=== PATIENT | female | born 1980 | race African-American/Black ===

== ENCOUNTER 2024-07-26 13:02 | Emergency (ER) | payer OTHER, SELFPAY ==
--- OUTSIDE RECORDS SUMMARY | 2024-07-26 13:11 | XMS_ITS | Clinical Summary ---
Author Organization [facility] Address [address] [place] [address] Care Team Providers Care Integrated Marketing Specialist Name Role Phone No, Physician Primary Care Provider [phone] Allergies No known active allergies Medications ibuprofen (ADVIL,MOTRIN) 600 mg tabletIndicati ons:Pain Take 1 tablet (600 mg total) by mouth every 8 (eight) hours as needed for pain. Take with food. 30 tablet 05/26/19 19 Active medroxyPROGEST ERone 150 mg/mL injection INJECT 1 ML INTRAMUSCULARLY DIRECTED EVERY 3 MONTHS FOR 84 DAYS 05/30/19 21 Active albuterol HFA (PROVENTIL HFA,VENTOLIN HFA,PROAIR HFA) 90 mcg/actuation inhaler Inhale 2 puffs every 4 (four) hours as needed for wheezing 8.5 g 09/05/19 22 Active fluconazole (DIFLUCAN) 150 mg tablet Take 1 tablet (150 mg total) by mouth as directed Take one tab now. Repeat in 7 days if symptoms persist. 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 Gender Identity Not on file Sexual Orientation Not on file Obstetrics History Para Term AB IAB SAB Ectopic Multiple Livin g Live Births 4 3 3 Date Outcome GA Total Labor Labor/2nd/3rd Weight Sex Type Anes PTL Michelle A1 A5 Name Clin Term Term Term Last Filed Vital Signs Vital Sign Reading Time Taken Comments Blood Pressure 113/80 02/17/2022 2:15 AM SPRAY WORKER Pulse 83 02/17/2022 2:15 AM SPRAY WORKER Temperature 37.3 C (99.2 F) 02/16/2022 3:00 PM SPRAY WORKER Respiratory Rate 18 02/16/2022 3:00 PM SPRAY WORKER Oxygen Saturation 100% 02/17/2022 2:15 AM SPRAY WORKER Inhaled Oxygen Concentration - - Weight 67.6 kg (149 lb) 02/16/2022 3:00 PM SPRAY WORKER Height 165.1 cm (5' 5 ) 02/16/2022 3:00 PM SPRAY WORKER Body Mass Index 24.79 02/16/2022 3:00 PM SPRAY WORKER Plan of Treatment Health Maintenance Due Date Last Done Comments Cervical Cancer Screening 1980 Depression Screening 1980 Hepatitis C Screening 1980 Regular Well Visit/Exam 18-64 1998 Pneumococcal vaccine <65 (2 of 2 - PPSV23) 12/24/2002 10/29/2002 HPV Vaccines (2 - 3-dose SCDM series) 12/20/2016 Breast Cancer Screening-Mammogram 07/14/2022 022 DTaP/Tdap/Td Vaccine (4 - Td or Tdap) 01/23/2024 01/22/2014, 11/27/2006, 10/29/2002 Influenza Vaccine (Season Ended) 2024 06/23/19 16, 02/10/2012 Hepatitis B Screening Completed 10/29/2002 Varicella Vaccines Completed 01/28/2010, 11/27/2006 Procedures Procedure Name Priority Date/Time Associated Diagnosis Comments SCREENING MAMMOGRAM BILATERAL W YO Schedule Routine, Read Routine (OP Routine) 07/14/2021 4:13 PM CDT Encounter for other screening for malignant neoplasm of breast from Last 3 Months or Most Recently Relevant to Health Maintenance Results * Screening Mammogram Bilateral W Yo (07/14/2021 4:13 PM CDT) Anatomical Region Laterality Modality Breast Bilateral Mammography 07/14/2021 4:38 PM CDT Impressions 07/14/2021 4:38 PM CDT There is no mammographic evidence of malignancy. A 1 year screening mammogram is recommended. BI-RADS: 1 - Negative. The patient has been or will be contacted. The patient will be entered into a reminder system with a target due date of 1 year for her next mammogram. Electronically signed by: Luis Steele M.D. Narrative 07/14/2021 4:38 PM CDT EXAMINATION: SCREENING MAMMOGRAM BILATERAL W YO ORDERING HEALTHCARE PROVIDER: KIMMIE YOUNG HISTORY: Routine screening mammography. COMPARISON: No prior mammograms available for comparison TECHNIQUE: CC and MLO views of the bilateral breasts were obtained with digital technique using breast tomosynthesis with C view. Computer aided detection was utilized. FINDINGS: DENSITY: The tissue of the bilateral breasts is heterogeneously dense, which may obscure small masses. BREASTS: There are no suspicious masses, suspicious calcifications, or other suspicious findings in either breast. There has been no suspicious interval change. Kimmie Young MD IMG MAMMO PROCEDURES Final Resul t from Last 3 Months or Most Recently Relevant to Health Maintenance Insurance [facility] Care Teams Integrated Marketing Specialist Relationship Specialty Start Date End Date No, Physician PCP - General 10/24/16
--- OUTSIDE RECORDS SUMMARY | 2024-07-26 13:11 | XMS_ITS | Encounter Summary ---
Author Organization [facility] Healthcare Address [facility] [place] [address] Care Team Providers Care Prenatal Genetic Counselor Name Role Phone No, Physician Primary Care Provider [phone] Encounter Details Date Type Department Care Team (Late st Contact Info) Description 02/03/2020 Telephone [facility] [address] [place] [id number] Ghazala Torres, RT Social History Tobacco Use Types Packs/Day Years Used Date Smoking Tobacco: Every Day Cigarettes Alcohol Use Standard Drinks/Week Comments Yes 0 (1 standard drink = 0.6 oz pur e alcohol) once a month Comments No Sex and Gender Information Value Date Recorded Sex Assigned at Not on file 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
--- OUTSIDE RECORDS SUMMARY | 2024-07-26 13:11 | XMS_ITS | Referral Summary ---
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 Gender Identity Not on file Sexual Orientation Not on file Last Filed Vital Signs Vital Sign Reading Time Taken Comments Blood Pressure 113/80 02/17/2022 2:15 AM CUTTING TABLE OPERATOR Pulse 83 02/17/2022 2:15 AM CUTTING TABLE OPERATOR Temperature 37.3 C (99.2 F) 02/16/2022 3:00 PM CUTTING TABLE OPERATOR Respiratory Rate 18 02/16/2022 3:00 PM CUTTING TABLE OPERATOR Oxygen Saturation 100% 02/17/2022 2:15 AM CUTTING TABLE OPERATOR Inhaled Oxygen Concentration - - Weight 67.6 kg (149 lb) 02/16/2022 3:00 PM CUTTING TABLE OPERATOR Height 165.1 cm (5' 5 ) 02/16/2022 3:00 PM CUTTING TABLE OPERATOR Body Mass Index 24.79 02/16/2022 3:00 PM CUTTING TABLE OPERATOR Plan of Treatment Not on file Procedures Procedure Name Priority Date/Time Associated Diagnosis [...] There has been no suspicious interval change. us Kimmie Young MD IMG MAMMO PROCEDURES Final Resul t from Last 3 Months or Most Recently Relevant to Health Maintenance Insurance [facility] [employer] [place] [address] [employer] [place] [address] Care Teams Reception Specialist Relationship Specialty Start Date End Date No, Physician PCP - General 10/24/16
--- OUTSIDE RECORDS SUMMARY | 2024-07-26 13:11 | XMS_ITS | Data Portability ---
[facility] Organization [facility] Address [address] [place] [address] Care Team Providers Care Editing Intern Name Role Phone KATY BURKS Plan Checker Assessment No assessment recorded. Plan of Treatment Reminders Order Date Submit Date Provider Last Modified By Organization Details Last Modified Time Details Appointments None recorded. Lab vaginal pathogens panel, JYOTSNA+probe , vaginal fluid 2023 024 [facility], [address] [place] [address], [facility], [place], [address], 4 07:15:06 cytology report, thin prep, smear or scraping, cervical or vaginal 2023 024 [facility], [address] [place] [address], [address], [place], [address], 4 15:10:25 bacterial vaginosis + vaginitis panel, vaginal 2023 024 [facility], [address] [facility], [facility], [place], [address], 4 15:17:15 lipid panel, serum 2023 024 [facility], [address] [place] [address], [facility], [place], [address], 4 15:17:16 HbA1c (hemoglob in A1c), blood 2023 024 [facility], [address] [place] [address], [facility], [place], [address], 4 15:17:17 cytology report, thin prep, smear or scraping, cervical or vaginal 2023 024 [facility], [address] [facility], [address], [place], [address], 4 15:21:14 Referral None recorded. Procedures insertion , intrauter ine device (PROC) 2021 022 [email or web address] Not available 12:23:02 Surgeries None recorded. Imaging MAMMO, screening , digital, bilateral [email or web address] [place] [address], 1 [facility], [place], [address], 4 15:29:18 Medication Orders NuvaRing 0.12 mg-0.015 mg/24 hr vaginal 2023 024 [facility], [address] [place], [address], 4 15:07:47 Lo Loestrin Fe 1 mg-10 mcg (24)/10 mcg (2) tablet 2021 022 [facility], [address] [place], [address], 4 11:13:55 Slynd 4 mg (28) tablet 2021 022 [facility], [address] [place], [address], 4 11:13:53 Mirena 21 mcg/24 hr (up to 8 years) 52 mg intrauter ine device 2021 022 [email or web address] Not available 12:15:18 Patient TargetsNo targets recorded. Patient Instructions Encounter Date Encounter Id Patient Instructions Last Modified By Organization Details Last Modified Time 03/02/2022 [id number] On the date of this encounter, I was immediately available to assist the resident/fellow in the care of the patient, and have reviewed and agree with the resident s findings and plan of care. [email or web address] Not available 03/07/2022 00:35:59 Reason for Referral None Reported. Results Created Date Observation Date Name Description Value Unit Range Abnormal Flag Note LastModifiedBy Organization Detail LastModifiedTime 04/27/19 24 04/30/2023 NUSWA B BV JYOTSNA+C AND6+ CT/GC /T... atopobium vaginae High - 2 score abnormal Not Available [facility] ([facility]) [address], [place], [address], 05/02/2023 15:17:15 04/27/19 24 04/30/2023 NUSWA B BV JYOTSNA+C AND6+ CT/GC /T... bvab 2 High - 2 score abnormal Not Available [facility] ([facility]) [address], [place], [address], 05/02/2023 15:17:15 04/27/19 24 04/30/2023 NUSWA B BV JYOTSNA+C AND6+ CT/GC /T... megasphaera 1 Low - 0 score Calcu late total score by andria villela the 3 indiv idual bacte rial vagin osis (BV) marke r score s toget her. Total score is inter prete d as follo ws: Total score 0-1: Indic ates the absen ce of BV. Total score 2: Indet ermin ate for BV. Addit ional clini ginna data shoul d be evalu ated to estab carolyn a diagn osis. Total score 3-6: Indic ates the prese nce of BV. This test was devel oped and its perfo rmanc e angélica cteri stics deter mined by [facility]. It has not been clear ed or appro murtaza by the Food and Drug Admin istra tion. Not Available [facility] ([facility]) [address], [place], [address], 05/02/2023 15:17:15 04/27/19 24 04/30/2023 NUSWA B BV JYOTSNA+C AND6+ CT/GC /T... carolina albicans, JYOTSNA Negati ve negati ve Not Available [facility] ([facility]) [address] [place], [address], 05/02/2023 15:17:15 04/27/19 24 04/30/2023 NUSWA B BV JYOTSNA+C AND6+ CT/GC /T... carolina glabrata, JYOTSNA Negati ve negati ve Not Available [facility] ([facility]) [address] [place], [address], 05/02/2023 15:17:15 04/27/19 24 04/30/2023 NUSWA B BV JYOTSNA+C AND6+ CT/GC /T... hsv 1 JYOTSNA Negati ve negati ve Not Available [facility] ([facility]) [address], [place], [address], 05/02/2023 15:17:15 04/27/19 24 04/30/2023 NUSWA B BV JYOTSNA+C AND6+ CT/GC /T... hsv 2 JYOTSNA Negati ve negati ve Not Available [facility] ([facility]) [address] [place], [address], 05/02/2023 15:17:15 04/27/19 24 05/01/2023 NUSWA B BV JYOTSNA+C AND6+ CT/GC /T... C parapsilosis /tropicalis Negati ve negati ve This assay does not diffe renti ate C. tropi calis and C. parap marco antonio is. Not Available [facility] ([facility]) [address] [place], [address], 05/02/2023 15:17:15 04/27/19 24 05/01/2023 NUSWA B BV JYOTSNA+C AND6+ CT/GC /T... carolina lusitaniae, JYOTSNA Negati ve negati ve Not Available [facility] ([facility]) [address] [place], [address], 05/02/2023 15:17:15 04/27/19 24 05/01/2023 NUSWA B BV JYOTSNA+C AND6+ CT/GC /T... carolina krusei, JYOTSNA Negati ve negati ve Not Available [facility] ([facility]) [address] [place], [address], 05/02/2023 15:17:15 04/27/19 24 05/02/2023 NUA B BV JYOTSNA+C AND6+ CT/GC /T... trich vag by JYOTSNA Positi ve negati ve abnormal Not Available [facility] ([facility]) [address] [place], [address], 05/02/2023 15:17:15 04/27/19 24 05/02/2023 NUA B BV JYOTSNA+C AND6+ CT/GC /T... chlamydia trachomatis, JYOTSNA Negati ve negati ve Not Available [facility] ([facility]) [address] [place], [address], 05/02/2023 15:17:15 04/27/19 24 05/02/2023 NUSWA B BV JYOTSNA+C AND6+ CT/GC /T... neisseria gonorrhoeae, JYOTSNA Negati ve negati ve Not Available [facility] ([facility]) [address] [place], [address], 05/02/2023 15:17:15 04/27/19 24 05/01/2023 IGP,C TNGTV ,APT HPV,R FX16/ 18,45 HPV aptima Negati ve negati ve This nucle ic acid ampli ficat ion test detec ts fourt een high- risk HPV types (16,1 8,31, 33,35 ,39,4 5,51, 52,56 ,58,5 9,66, 68) witho ut diffe renti ation . Not Available [facility] ([facility]) [address], [place], [address], 05/02/2023 15:21:14 04/27/19 24 05/01/2023 IGP,C TNGTV ,APT HPV,R FX16/ 18,45 chlamydia, nuc. acid amp Negati ve negati ve Not Available [facility] ([facility]) [address], [place], [address], 05/02/2023 15:21:14 04/27/19 24 05/01/2023 IGP,C TNGTV ,APT HPV,R FX16/ 18,45 gonococcus, nuc. acid amp Negati ve negati ve Not Available [facility] ([facility]) [address], [place], [address], 05/02/2023 15:21:14 04/27/19 24 05/01/2023 IGP,C TNGTV ,APT HPV,R FX16/ 18,45 trich vag by JYOTSNA Positi ve negati ve abnormal Not Available [facility] ([facility]) [address], [place], [address], 05/02/2023 15:21:14 04/27/19 24 05/02/2023 IGP,C TNGTV ,APT HPV,R FX16/ 18,45 diagnosis: Commen t UNSAT ISFAC TORY FOR EVALU ATION . Not Available [facility] ([facility]) [address] [place], [address], 05/02/2023 15:21:14 04/27/19 24 05/02/2023 IGP,C TNGTV ,APT HPV,R FX16/ 18,45 specimen adequacy: Commen t Speci men proce ssed and exami luke, but unsat isfac tory for evalu ation of epith elial abnor malit y becau se of exces sive lubri cant. Not Available [facility] ([facility]) [address], [place], [address], 05/02/2023 15:21:14 04/27/19 24 05/02/2023 IGP,C TNGTV ,APT HPV,R FX16/ 18,45 clinician provided ICD10: Lydia gresham N89.8 Z12.4 Not Available [facility] ([facility]) [address], [place], [address], 05/02/2023 15:21:14 04/27/19 24 05/02/2023 IGP,C TNGTV ,APT HPV,R FX16/ 18,45 performed by: Lydia Russell , Cytot echno logis t (ASCP ) Not Available [facility] ([facility]) [address], [place], [address], 05/02/2023 15:21:14 04/27/19 24 05/02/2023 IGP,C TNGTV ,APT HPV,R FX16/ 18,45 QC reviewed by: Lydia Thornton , Cytot echno logis t (ASCP ) Not Available [facility] ([facility]) [address], [place], [address], 05/02/2023 15:21:14 04/27/19 24 05/02/2023 IGP,C TNGTV ,APT HPV,R FX16/ 18,45 electronical ly signed by: Lydia Ng MD, Patho logis t Not Available [facility] ([facility]) [address], [place], [address], 05/02/2023 15:21:14 04/27/19 24 05/02/2023 IGP,C TNGTV ,APT HPV,R FX16/ 18,45 . . Not Available [facility] ([facility]) [address] [place], [address], 05/02/2023 15:21:14 04/27/19 24 05/02/2023 IGP,C TNGTV ,APT HPV,R FX16/ 18,45 note: Commen t The Pap smear is a scree festus test desig luke to aid in the detec tion of tamiko ligna nt and malig nant condi tions of the uteri ne cervi x. It is not a diagn ostic proce dure and shoul d not be used as the sole means of detec ting cervi ginna cance r. Both false -posi tive and false -nega tive repor ts do occur . Not Available [facility] ([facility]) [address] [place], [address], 05/02/2023 15:21:14 04/27/19 24 05/02/2023 IGP,C TNGTV ,APT HPV,R FX16/ 18,45 test methodology: - The Thin Prep( R) Image r was unabl e to read this speci men. There fore a manua l revie w was perfo rmed. Not Available [facility] ([facility]) [address] [place], [address], 05/02/2023 15:21:14 04/27/19 24 05/02/2023 IGP,C TNGTV ,APT HPV,R FX16/ 18,45 HPV genotype reflex Commen t Crite heena not met, HPV Genot ype not perfo rmed. Not Available [facility] ([facility]) [address] [place], [address], 05/02/2023 15:21:14 04/27/19 24 04/28/2023 HEMOG LOBIN A1C hemoglobin A1C 4.7 % 4.8-5. 6 below low normal Predi abete s: 5.7 - 6.4 Diabe rush: >6.4 Glyce vera contr ol for adult s with diabe rush: <7.0 Not Available [facility] ([facility]) [address] [facility] [place], [address], 05/02/2023 15:17:16 04/27/19 24 04/28/2023 LIPID PROFI LE cholesterol, total 202 mg/dL 100-19 9 above high normal Not Available [facility] ([facility]) [address], [place], [address], 05/02/2023 15:17:16 04/27/19 24 04/28/2023 LIPID PROFI LE triglyceride s 71 mg/dL 0-149 Not Available [facility] ([facility]) [address] [place], [address], 05/02/2023 15:17:16 04/27/19 24 04/28/2023 LIPID PROFI LE HDL cholesterol 55 mg/dL >39 Not Available [facility] ([facility]) [address] [place], [address], 05/02/2023 15:17:16 04/27/19 24 04/28/2023 LIPID PROFI LE VLDL cholesterol ginna 13 mg/dL 5-40 Not Available [facility] ([facility]) [address] [place], [address], 05/02/2023 15:17:16 04/27/19 24 04/28/2023 LIPID PROFI LE LDL chol calc ([facility]) 134 mg/dL 0-99 above high normal Not Available [facility] ([facility]) [address] [place], [address], 05/02/2023 15:17:16 07/10/19 24 07/11/2023 IGP,C TNGTV ,APT HPV,R FX16/ 18,45 HPV aptima Negati ve negati ve This nucle ic acid ampli ficat ion test detec ts fourt een high- risk HPV types (16,1 8,31, 33,35 ,39,4 5,51, 52,56 ,58,5 9,66, 68) witho ut diffe renti ation . Not Available [facility] ([facility]) [address], [place], [address], 07/13/2023 15:10:24 07/10/19 24 07/11/2023 IGP,C TNGTV ,APT HPV,R FX16/ 18,45 chlamydia, nuc. acid amp Negati ve negati ve Not Available [facility] ([facility]) [address], [place], [address], 07/13/2023 15:10:24 07/10/19 24 07/11/2023 IGP,C TNGTV ,APT HPV,R FX16/ 18,45 gonococcus, nuc. acid amp Negati ve negati ve Not Available [facility] ([facility]) [address], [place], [address], 07/13/2023 15:10:24 07/10/19 24 07/11/2023 IGP,C TNGTV ,APT HPV,R FX16/ 18,45 trich vag by JYOTSNA Negati ve negati ve Not Available [facility] ([facility]) [address], [place], [address], 07/13/2023 15:10:24 07/10/19 24 07/13/2023 IGP,C TNGTV ,APT HPV,R FX16/ 18,45 diagnosis: Commen t NEGAT RUBÉN FOR INTRA EPITH ELIAL LESIO N OR PAYAM CHRISTIANSON . Not Available [facility] ([facility]) [address] [place], [address], 07/13/2023 15:10:24 07/10/19 24 07/13/2023 IGP,C TNGTV ,APT HPV,R FX16/ 18,45 specimen adequacy: Commen t Satis facto ry for evalu ation . Endoc ervic al and/o r squam ous metap lasti c cells (endo cervi ginna compo nent) are prese nt. Not Available [facility] ([facility]) [address], [place], [address], 07/13/2023 15:10:24 07/10/19 24 07/13/2023 IGP,C TNGTV ,APT HPV,R FX16/ 18,45 clinician provided ICD10: Lydia gresham Z12.4 Not Available [facility] ([facility]) [address], [place], [address], 07/13/2023 15:10:24 07/10/19 24 07/13/2023 IGP,C TNGTV ,APT HPV,R FX16/ 18,45 performed by: Lydia veloz, Sy gresham (ASCP ) Not Available [facility] ([facility]) [address] [place], [address], 07/13/2023 15:10:24 07/10/19 24 07/13/2023 IGP,C TNGTV ,APT HPV,R FX16/ 18,45 . . Not Available [facility] ([facility]) [address], [place], [address], 07/13/2023 15:10:24 07/10/19 24 07/13/2023 IGP,C TNGTV ,APT HPV,R FX16/ 18,45 note: Lydia gresham The Pap smear is a scree festus test desig luke to aid in the detec tion of tamiko ligna nt and malig nant condi tions of the uteri ne cervi x. It is not a diagn ostic proce dure and shoul d not be used as the sole means of detec ting cervi ginna cance r. Both false -posi tive and false -nega tive repor ts do occur . Not Available [facility] ([facility]) [address] [place], [address], 07/13/2023 15:10:24 07/10/19 24 07/13/2023 IGP,C TNGTV ,APT HPV,R FX16/ 18,45 test methodology: Commen t This liqui d based ThinP rep(R ) pap test was julian butler with the use of an image guide cynthia webber Not Available [facility] ([facility]) [address], [place], [address], 07/13/2023 15:10:24 07/10/19 24 07/13/2023 IGP,C TNGTV ,APT HPV,R FX16/ 18,45 HPV genotype reflex Commen t Crite heena not met, HPV Genot ype not perfo rmed. Not Available [facility] ([facility]) [address] [place], [address], 07/13/2023 15:10:24 02/20/20 24 02/21/2024 NUSWA B VAGIN ITIS PLUS (VG+) atopobium vaginae HIGH - 2 score abnormal Not Available [facility] ([facility]) [address], [place], [address], 02/22/2024 07:15:06 02/20/20 24 02/21/2024 NUSWA B VAGIN ITIS PLUS (VG+) bvab 2 HIGH - 2 score abnormal Not Available [facility] ([facility]) [address] [place], [address], 02/22/2024 07:15:06 02/20/20 24 02/21/2024 NUSWA B VAGIN ITIS PLUS (VG+) megasphaera 1 LOW - 0 score Calcu late total score by andria g the 3 indiv idual bacte rial vagin osis (BV) marke r score s toget her. Total score is inter prete d as follo ws: Total score 0-1: Indic ates the absen ce of BV. Total score 2: Indet ermin ate for BV. Addit ional clini ginna data shoul d be evalu ated to estab carolyn a diagn osis. Total score 3-6: Indic ates the prese nce of BV. Not Available [facility] ([facility]) [address], [place], [address], 02/22/2024 07:15:06 02/20/2002/21/2024 NUA B VAGIN ITIS PLUS (VG+) carolina albicans, JYOTSNA NEGATI VE negati ve Not Available [facility] ([facility]) [address], [place], [address], 02/22/2024 07:15:06 02/20/20 24 02/21/2024 NUA B VAGIN ITIS PLUS (VG+) carolina glabrata, JYOTSNA NEGATI VE negati ve Not Available [facility] ([facility]) [address], [place], [address], 02/22/2024 07:15:06 02/20/2002/22/2024 NUA B VAGIN ITIS PLUS (VG+) trich vag by JYOTSNA NEGATI VE negati ve Not Available [facility] ([facility]) [address], [place], [address], 02/22/2024 07:15:06 02/20/20 24 02/22/2024 NUA B VAGIN ITIS PLUS (VG+) chlamydia trachomatis, JYOTSNA NEGATI VE negati ve Not Available [facility] ([facility]) [address], [place], [address], 02/22/2024 07:15:06 02/20/20 24 02/22/2024 NUA B VAGIN ITIS PLUS (VG+) neisseria gonorrhoeae, JYOTSNA NEGATI VE negati ve Not Available [facility] ([facility]) [address], [place], [address], 02/22/2024 07:15:06 02/29/[address], abdom en + pelvi s, w/ contr ast No observ ation record ed. [email or web address] Not Available 2021 11:58:12 03/02/20 22 02/16/2022 CT, abdom en + pelvi s, w/ contr ast No observ ation record ed. Not Available 03/11 23:54:10 Result Notes None recorded. Problems Name Problem SNOMED Code Status Onset Date Resolution Date Notes Provider Name and Address Organization Details Recorded Time Nicotine-f illed electronic cigarette user 775450215 Active 2023 Dayana Ochoa MD Attn: Accounting ,[address] [place], [place], [address] [place] [address] , [facility] 4 14:55:11 Abnormal cervical Papanicola ou smear 867401974 Active 2023 Dayana Ochoa MD Attn: Accounting ,[address] [place], [place], [address] [place] [address] , [facility] 4 14:55:18 Surveillan ce of contracept ion Active 2023 Dayana Ochoa MD Attn: Accounting ,[address] [place], [place], [address] [place] [address] , [facility] 4 15:52:18 Breast lump [id number] Completed 04/27/2023 Dayana Ochoa MD Attn: [facility] ,[address] [place], [place], [address] [place] [address] , [facility] 4 14:54:56 Chlamydial infection 958474732 Completed 04/27/2023 Dayana Ochoa MD Attn: Accounting ,[address] [place], [place], [address] [place] [address] , [facility] 4 14:54:59 Bacterial vaginosis 916311466 Completed 04/27/2023 Dayana Ochoa MD Attn: Accounting ,[address] [place], [place], [address] [place] [address] , [facility] 4 14:54:54 Notes:Some problems listed i n Document: #[id number] could not be added to this patient's chart. Please review this document and add these problems to the patient's chart manually as needed. Problem Notes None recorded. Procedures Surgical History Date Name Laterality Status Provider Name and Address Organization Details Recorded Time 07/10/19 24 Date of Last Pap Smear completed CIPRIANO Griggs [place] - [facility] 02/20/2024 08:31:11 02/05/20 22 IUD Insertion completed Chyna Walker MD Attn: Accounting,[address] [facility], [place], [address], [facility] - [facility] 02/04/2022 11:38:51 09/02/19 22 Depo Injection completed Jamaica Reinoso MA [facility] - [facility] 09/01/2021 15:35:25 08/04/19 22 Colposcopy completed Luis A Clemente MD Attn: Accounting,[address] [facility], [place], [address], [facility] - [facility] 08/03/2021 15:52:27 08/04/19 22 Colposcopy completed Jamaica Reinoso MA PR - [facility] 08/31/2021 15:58:02 11/25/19 21 Depo Injection completed Diane Zhu PR - [facility] 11/24/2020 16:26:27 09/02/19 21 Depo Injection completed Jamaica Reinoso MA PR - [facility] 09/01/2020 16:24:47 06/01/19 21 Depo Injection completed Jamaica Reinoso MA PR - [facility] 06/01/2020 15:07:42 03/02/20 20 Colposcopy completed Jory Pearson PR - [facility] 03/02/2020 17:00:23 03/02/20 20 Depo Injection completed Jamaica Reinoso MA PR - [facility] 03/02/2020 16:45:43 03/02/20 20 Colposcopy completed Jamaica Reinoso MA PR - [facility] 03/02/2020 16:07:32 11/09/19 17 Induced d&c completed Margret Chow RN [facility] - [facility] 02/09/2017 16:13:46 11/19/19 16 Depo Injection completed Diana Brantley MA PR - [facility] 11/19/2015 11:32:25 06/23/19 16 Depo Injection completed Diana Brantley MA PR - [facility] 06/23/2015 17:40:37 03/27/20 15 Depo Injection completed Diana Brantley MA PR - [facility] 03/27/2015 13:45:55 04/10/19 14 Appendectomy completed Jamaica Reinoso MA PR - [facility] 01/28/2020 14:32:35 Imaging Results Imaging Date Name Status LastModified by Organiz ation Details LastModified Time 02/28/2022 CT, abdomen + pelvis, w/ contrast completed [email or web address] Information not available 02/28/2022 11:58:12 02/16/2022 CT, abdomen + pelvis, w/ contrast completed [email or web address] Information not available 03/11/2022 23:54:10 Procedure Notes None recorded. Medical Equipment None Reported. Allergies No known drug allergies Medications Name Sig Start Date Stop Date Status Note LastModified by Organization Details LastModified Time amoxicill in 500 mg capsule 01/27 completed Not Available Not Available Not Available Mirena 21 mcg/24 hr (up to 8 years) 52 mg intrauter ine device Take 1 device by intraute rine route. 03/02 completed billed through pts insuranc e Not Available Not Available Not Available clindamyc in HCl 300 mg capsule TAKE 1 CAPSULE BY MOUTH EVERY 8 HOURS FOR 14 DAYS 01/12 completed Not Available Not Available Not Available azithromy breonna 250 mg tablet 05/15 completed Not Available Not Available Not Available fluconazo le 150 mg tablet TAKE 1 TABLET BY MOUTH 1 TIME. MAY REPEAT IN 72 HOURS active Not Available Not Available No t Available hydrocodo ne 5 mg-acetam inophen 325 mg tablet TAKE 1 TABLET BY MOUTH EVERY 4 HOURS NEEDED FOR PAIN 04/30 completed Not Available Not Available Not Available metronida zole 0.75 % (37.5 mg/5 gram) vaginal gel Insert 1 applicat orful every day by vaginal route at bedtime for 5 days. 01/27 completed Not Available Not Available Not Available Anucort-H C 25 mg supposito ry 01/27 completed Not Available Not Available Not Available clindamyc in HCl 150 mg capsule 01/27 completed Not Available Not Available Not Available metronida zole 500 mg tablet Take 1 tablet twice a day by oral route for 7 days. active Not Available Not Available No t Available sulfameth oxazole 800 mg-trimet hoprim 160 mg tablet TAKE 1 TABLET BY MOUTH EVERY 12 HOURS FOR 10 DAYS 04/27 completed Not Available Not Available Not Available cephalexi n 500 mg capsule 04/27 completed Not Available Not Available Not Available erythromy breonna 5 mg/gram (0.5 %) eye ointment 01/27 completed Not Available Not Available Not Available oseltamiv ir 75 mg capsule 01/27 completed Not Available Not Available Not Available ibuprofen 600 mg tablet 01/27 completed Not Available Not Available Not Available methylpre dnisolone 4 mg tablets in a dose pack 03/02 completed Not Available Not Available Not Available albuterol sulfate HFA 90 mcg/actua tion aerosol inhaler INHALE 2 PUFFS BY MOUTH EVERY 4 HOURS NEEDED FOR WHEEZING 01/12 completed Not Available Not Available Not Available medroxypr ogesteron e 150 mg/mL intramusc ular suspensio n Inject 1 mL every 3 months by intramus cular route for 84 days. 03/02 completed Not Available Not Available Not Available etonogest rel 0.12 mg-ethiny l estradiol 0.015 mg/24 hr vaginal ring INSERT ONE RING VAGINALL Y FOR THREE WEEKS, REMOVE FOR ONE WEEK, THEN INSERT NEW RING. active Not Available Not Available No t Available azithromy breonna 500 mg tablet Take 2 tablets as needed by oral route for 1 day. 05/15 completed Not Available Not Available Not Available medroxypr ogesteron e 150 mg/mL intramusc ular syringe 03/02 completed Not Available Not Available Not Available Lo Loestrin Fe 1 mg-10 mcg (24)/10 mcg (2) tablet take 6 tabs orally on day 1, then 5 tabs orally on day 2, then 4 tabs orally on day 3, then 3 tabs orally on day 4, then 2 tabs orally on day 5, then 1 tab orally on day 6 04/27 completed Not Available Not Available Not Available Virtussin AC 10 mg-100 mg/5 mL oral liquid 01/27 completed Not Available Not Available Not Available Slynd 4 mg (28) tablet Take 1 tablet every day by oral route for 30 days. 04/27 completed Not Available Not Available Not Available Paxlovid 300 mg (150 mg x 2)-100 mg tablets in a dose pack TAKE BY MOUTH DIRECTED ON INSIDE OF PACKAGE 03/02 completed Not Available Not Available Not Available Vitals Date Recorded Body height Body mass index (BMI) Body weight Heart rate Respiratory rate Body temperature Systolic blood pressure Diastolic blood pressure Provider Name and Address Organization Details Last Updated DateTime 2 165.1 cm 25.4 kg/m2 23822.1 9 g 84 /min 18 /min 98.3 [degF] 130 mm[Hg] 80 mm[Hg] Maxine Rivera MA [facility] 2 10:54:36 Date Recorded Body height Body mass index (BMI) Body weight Heart rate Respiratory rate Body temperature Systolic blood pressure Diastolic blood pressure Provider Name and Address Organization Details Last Updated DateTime 2 165.1 cm 25.3 kg/m2 63994.7 4 g 64 /min 20 /min 98.3 [degF] 128 mm[Hg] 80 mm[Hg] Maxine Rivera MA [facility] 2 11:38:55 Date Recorded Body height Body mass index (BMI) Body weight Heart rate Respiratory rate Body temperature Systolic blood pressure Diastolic blood pressure Provider Name and Address Organization Details Last Updated DateTime 4 165.1 cm 24 kg/m2 13767.7 5 g 96 /min 16 /min 96.8 [degF] 128 mm[Hg] 85 mm[Hg] Roxanne Mendoza MA [facility] 4 11:17:01 Date Recorded Body height Body mass index (BMI) Body weight Heart rate Respiratory rate Body temperature Systolic blood pressure Diastolic blood pressure Provider Name and Address Organization Details Last Updated DateTime 4 165.1 cm 24.5 kg/m2 27744.8 3 g 80 /min 18 /min 98.3 [degF] 109 mm[Hg] 70 mm[Hg] Maxine Rivera MA [facility] 4 12:00:14 Date Recorded Body height Body mass index (BMI) Body weight Systolic blood pressure Diastolic blood pressure Provider Name and Address Organization Details Last Updated DateTime 02/20/2024 165.1 cm 24.3 kg/m2 97852.49 g 127 mm[Hg] 82 mm[Hg] CIPRIANO Griggs [place] - [place] 4 15:39:23 Social History Question Answer Notes LastModified by Organizat ion Details LastModified Time Tobacco Smoking Status Former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 Accounting[address] [place], [address], [place] - [facility] 03/07/2022 00:36:16 4 text/html Here for well woman and would like to be checked for STIs and discuss contraception. Cervical cancer screeningPap hx: ASCUS HPV+ --> colpo nlOCT20 nl Cyt HPV+ --> colpo nl (per chart notes), repeat 1 yearAP: Should have had pap last year. Will do cotesting today. If both cytology and HPV negative, then repeat pap in 3 years. If any abnormality, needs colpo Vaginal dischargeShe's had a vaginal discharge with slight odor for about a week. Has had BV before, feels similar. Sexually active with boyfriend of 3 years, reports he is monogamous. They have vaginal and oral sex.AP: Swabs pending. Declines testing for blood borne illnesses. Family planningThey use coitus interruptus for control. Used to be on depo but had persistent bleeding. Had IUD but had issues so removed. Was on nuvaring previously but didn't like how it felt during intercourse. No personal/FMH VTE. Vapes, doesn't smoke cigarettes.AP: Agreeable to retry nuvaring - educated she can take it out up to 3 hours for sex. Nicotine useVapes. Started in last few years. Never smoked cigarettes.AP: discussed risks. Can try to quit using nicotine inhaler; will let me know if she wants rx. PreventionColorectal screening: n/aCervical cancer screening: todayBreast cancer screening: would like to do yearly mammosOsteoporosis screening:Hep C/STI screening:Vaccines:UTD on fluPOA/Code Status:AP: Declines covid. Lipd and DM screening today. Dayana Ochoa MD Attn: Accounting[address] [facility], [place], [address], [facility] 04/27/2023 17:28:39 4 text/html Here for f/u pap test. Seen 3 months ago but specimen was inadequate. Cervical cancer screeningPap hx: ASCUS HPV+ --> colpo nlOCT20 nl Cyt HPV+ --> colpo nl (per chart notes), repeat 1 yearAP: Should have had pap last year. Will do cotesting today. If both cytology and HPV negative, then repeat pap in 3 years. If any abnormality, needs colpo. Has already seen Dr. Walker previously for colpo. Vaginal dischargeShe's had a vaginal discharge with slight odor for about a week. Has had BV before, feels similar. Sexually active with boyfriend of 3 years, reports he is monogamous. They have vaginal and oral sex.AP: Swabs pending. Declines testing for blood borne illnesses.APR24: Test at last visit was + for trich. She took tx and sx resolved.AP: No further workup today Family planningThey use coitus interruptus for control. Used to be on depo but had persistent bleeding. Had IUD but had issues so removed. Was on nuvaring previously but didn't like how it felt during intercourse. No personal/FMH VTE. Vapes, doesn't smoke cigarettes.AP: Agreeable to retry nuvaring - educated she can take it out up to 3 hours for sex.APR24: On nuvaring and it's working well! Nicotine useVapes. Started in last few years. Never smoked cigarettes.AP: discussed risks. Can try to quit using nicotine inhaler; will let me know if she wants rx. PreventionColorectal screening: n/aCervical cancer screening: todayBreast cancer screening: would like to do yearly mammosOsteoporosis screening:Hep C/STI screening:Vaccines:UTD on fluPOA/Code Status:AP: Declines covid. Lipd and DM screening today. Dayana Ochoa MD Attn: Accounting[address] [place], [address], [facility] 07/10/2023 15:53:29 4 text/html Pt is here for vaginal discharge. Pt reports having vaginal itching. pt reports thought it was yeast infection. Pt reports took fluconazole 2 days ago and noticed improvement. pt denies any other complaints. PETER Rolle Attn: Accounting[address] [facility], [place], [address], [facility] [place] 02/20/2024 16:05:56 OBGyn Episode Ob Episode Information Episode Created Date Number of Fetuses Patient Bloodtype Patient rh Status Prepregnancy Weight lbs Domestic Partner Domestic Partner Phone Father Name Tax Staff Accountant Status 01/28/20 1 CLOSED Fetus Data First Name Last Name Admitted to NICU Weight (g) Sex Living Outcome Pediatric Complications Fetus ID Race Codes Race Delivery Type 2721.55 2 F Full Term [id number] Vaginal Brian Calculation Initial Brian Date Initial Exam Date Initial Exam Provider Initial Ultrasound Date Last Menstrual Period Date Ultra Sound Weeks Gestation 0 Eighteen To Twenty Week Brian Update Ultra Sound Date Fundal Height At Umbil Quickening Date Ultra Sound Latest Weeks Gestation Final Brian Confirmed By Final Brian Confirmed Date Final Brian Date Ultra Sound Latest Days Gestation 0 0 Menstrual History Last Menstrual Date Menses Monthly On Bcp Conception Prior Menses Frequency Hcg Plus Date Menarche Onset Age Delivery Information Delivery Date Delivery Type Labor Anesthesia Weeks Gestation Incision Type Labor Labor Length Hrs Delivered By Post Complications Tubal Sterilization Discharge Date Comments 7 Discharge Information Feeding Method Contraceptive Method Maternal HG B and HCT Levels Ob Episode Information Episode Created Date Number of Fetuses Patient Bloodtype Patient rh Status Prepregnancy Weight lbs Domestic Partner Domestic Partner Phone Father Name Tax Staff Accountant Status 01/28/20 1 CLOSED Fetus Data First Name Last Name Admitted to NICU Weight (g) Sex Living Outcome Pediatric Complications Fetus ID Race Codes Race Delivery Type , Induced [id number] Brian Calculation Initial Brian Date Initial Exam Date Initial Exam Provider Initial Ultrasound Date Last Menstrual Period Date Ultra Sound Weeks Gestation 0 Eighteen To Twenty Week Brian Update Ultra Sound Date Fundal Height At Umbil Quickening Date Ultra Sound Latest Weeks Gestation Final Brian Confirmed By Final Brian Confirmed Date Final Brian Date Ultra Sound Latest Days Gestation 0 0 Menstrual History Last Menstrual Date Menses Monthly On Bcp Conception Prior Menses Frequency Hcg Plus Date Menarche Onset Age Delivery Information Delivery Date Delivery Type Labor Anesthesia Weeks Gestation Incision Type Labor Labor Length Hrs Delivered By Post Complications Tubal Sterilization Discharge Date Comments 7 Discharge Information Feeding Method Contraceptive Method Maternal HG B and HCT Levels Ob Episode Information Episode Created Date Number of Fetuses Patient Bloodtype Patient rh Status Prepregnancy Weight lbs Domestic Partner Domestic Partner Phone Father Name Tax Staff Accountant Status 01/28/20 1 CLOSED Fetus Data First Name Last Name Admitted to NICU Weight (g) Sex Living Outcome Pediatric Complications Fetus ID Race Codes Race Delivery Type 2438.05 7 M Full Term 24019 Vaginal Brian Calculation Initial Brian Date Initial Exam Date Initial Exam Provider Initial Ultrasound Date Last Menstrual Period Date Ultra Sound Weeks Gestation 0 Eighteen To Twenty Week Brian Update Ultra Sound Date Fundal Height At Umbil Quickening Date Ultra Sound Latest Weeks Gestation Final Brian Confirmed By Final Brian Confirmed Date Final Brian Date Ultra Sound Latest Days Gestation 0 0 Menstrual History Last Menstrual Date Menses Monthly On Bcp Conception Prior Menses Frequency Hcg Plus Date Menarche Onset Age Delivery Information Delivery Date Delivery Type Labor Anesthesia Weeks Gestation Incision Type Labor Labor Length Hrs Delivered By Post Complications Tubal Sterilization Discharge Date Comments 3 Discharge Information Feeding Method Contraceptive Method Maternal HG B and HCT Levels Ob Episode Information Episode Created Date Number of Fetuses Patient Bloodtype Patient rh Status Prepregnancy Weight lbs Domestic Partner Domestic Partner Phone Father Name Tax Staff Accountant Status 01/28/20 1 CLOSED Fetus Data First Name Last Name Admitted to NICU Weight (g) Sex Living Outcome Pediatric Complications Fetus ID Race Codes Race Delivery Type 2381.35 8 M Full Term [address]00 Vaginal Brian Calculation Initial Brian Date Initial Exam Date Initial Exam Provider Initial Ultrasound Date Last Menstrual Period Date Ultra Sound Weeks Gestation 0 Eighteen To Twenty Week Brian Update Ultra Sound Date Fundal Height At Umbil Quickening Date Ultra Sound Latest Weeks Gestation Final Brian Confirmed By Final Brian Confirmed Date Final Brian Date Ultra Sound Latest Days Gestation 0 0 Menstrual History Last Menstrual Date Menses Monthly On Bcp Conception Prior Menses Frequency Hcg Plus Date Menarche Onset Age Delivery Information Delivery Date Delivery Type Labor Anesthesia Weeks Gestation Incision Type Labor Labor Length Hrs Delivered By Post Complications Tubal Sterilization Discharge Date Comments 9 Discharge Information Feeding Method Contraceptive Method Maternal HG B and HCT Levels
[2024-07-26 13:14] VITALS: BP 130/79; PULSE 94; RESP 18; TEMP 36.9; O2SAT 100
--- NOTE | 2024-07-26 13:54 | ED_ITS ---
HPI - URI/Sore Throat General Chief Complaint: Upper Respiratory Infection Stated Complaint: Runny Nose/Sore Throat/Chills Time Seen by Provider: 07/26/24 13:55 Source: patient, RN notes reviewed and old records reviewed Mode of arrival: ambulatory Limitations: no limitations History of Present Illness HPI Narrative: 43-year-old female presents to [facility] with sinus congestion, sore sneezing MD elicited complaint: sore throat, rhinorrhea, nasal congestion and sinus pain Able to tolerate fluids by mouth: Yes Related Data Allergies Allergy/AdvReac Type Severity Reaction Status Date / Time No Known Allergies Allergy Verified 07/26/24 13:24 Review of Systems Review of Systems: CONSTITUTIONAL: Reports malaise,positive for chills, sweats, unknown if chills fever. EYES: Denies visual changes, redness, or discharge. ENT: Reports rhinorrhea, congestion, sinus pressure,no otalgia and positive sore throat. CARDIOVASCULAR: Denies chest pain, palpitations, or edema. RESPIRATORY: Reports no acute cough.? Denies dyspnea. GASTROINTESTINAL: Denies abdominal pain, nausea, vomiting, diarrhea SKIN: Denies rash or itching. MUSCULOSKELETAL: Denies myalgia. NEUROLOGIC: Denies headache. All systems reviewed & are unremarkable except as noted in HPI and below PMFSH Comments At time of signature, agree with nursing past medical, surgical, social and family history. There is no relevant family history pertinent to the presenting complaint Exam Narrative: GENERAL: Well-appearing, well-nourished, and in no acute distress. HEAD: Normocephalic EYES: PERRLA, conjunctivae clear ENT: Nares clear, turbinates edematous and erythematous, clear discharge. Mucous membranes moist. TM pearly johnson with dull light reflex bilaterally; no tragal tenderness. Oropharynx erythematous without lesions. Tonsils not enlarged and without exudate, no drooling, no hoarseness, no trismus, uvula midline. NECK: Supple. No lymphadenopathy CHEST: Clear to auscultation, breath sounds equal. No wheezing, rhonchi, rales, or stridor. No respiratory distress, speaks in full sentences. HEART: Regular rate and rhythm. No murmur heard. SKIN: Warm, dry, no rash. NEURO: Alert and oriented x3. PSYCH: Normal mood and affect Course Course Emergency Course: Patient is aware of diagnosis, understands and agrees to treatment plan.? Anticipatory guidance given.? Patient agrees to follow-up as directed and is aware of reasons to seek care at the emergency department. Portions of this record may have been created with voice recognition software Level of Care: Express Care Visit Vital Signs Vital signs: Vital Signs Temperature 36.9 C 07/26/24 13:14 Pulse Rate 94 07/26/24 13:14 Respiratory Rate 18 07/26/24 13:14 Blood Pressure 130/79 07/26/24 13:14 Pulse Oximetry 100 07/26/24 13:14 Oxygen Delivery Room Air 07/26/24 13:14 Temperature 36.9 C 07/26/24 13:14 Pulse Rate 94 07/26/24 13:14 Respiratory Rate 18 07/26/24 13:14 Blood Pressure 130/79 07/26/24 13:14 Pulse Oximetry 100 07/26/24 13:14 Oxygen Delivery Room Air 07/26/24 13:14 Reviewed MDM - URI/Sore Throat MDM Narrative Medical decision making narrative: Differential diagnosis considered: Roche virus, strep pharyngitis, allergic rhinitis, upper respiratory tract infection, sinusitis, rhinosinusitis, nasopharyngitis. viral pharyngitis, otitis media, otitis externa, pneumonia, bronchitis, viral cough syndrome, viral syndrome, and influenza.? Exam findings show no acute concerns or changes; patient is non-toxic appearing and is in no distress.? Patient is appropriate for outpatient treatment and follow-up. Lab Data Attestation: I reviewed the patient's lab results. Critical Care Time Critical Care Time Critical Care Time: No Discharge Plan Discharge Clinical Impression: Upper respiratory infection Qualifiers: URI type: unspecified URI Qualified Code(s): J06.9 - Acute upper respiratory infection, unspecified Pharyngitis Qualifiers: Pharyngitis/tonsillitis etiology: unspecified etiology Qualified Code(s): J02.9 - Acute pharyngitis, unspecified Patient Disposition: Home Condition: Stable Instructions: Antibiotic Form, Pharyngitis (ED), Upper Respiratory Infection (ED) Additional Instructions: Increase fluids especially juices and water Kxuz-kuo-bjsuwhs cough and cold medicine of your choice for your symptoms Zyrtec Claritin or Marta daily include plain Sudafed in AM Steroids as directed--take with food heat to the face 20-30 minutes 4-6 times a day for pain Salt water gargles, throat lozenges or throat sprays as desired Your strep test today was negative. A throat culture will be sent to the laboratory for further testing. IF the test is positive, you will receive a phone call within 48 hours and an appropriate antibiotic will be initiated at that time. If your symptoms persist, change or worsen significantly before you can contact your personal physician then please, without delay, go to the emergency department for further evaluation. Follow-up with PCP in 7-10 days or sooner if needed Follow up with PCP soon in regards to your blood pressure which is elevated above threshold for referral. Blood pressure above 120/80 may indicate pre- hypertension. 130/79 Patient Language: Latvian Prescriptions: New methylprednisolone [Medrol (Shyam)] 4 mg tablets,dose pack See Rx Instructions .ROUTE .COMPLEX Qty: 21 0RF Rx Instructions: orally per package directions Follow-up/Referrals: PHYSICIAN,INTERVENTIONAL CARDIOLOGIST [Primary Care Provider] - Time of Disposition: 14:08
[2024-07-26 14:02] LABS: EDCOVIDSCREEN Negative (Negative); EDINFLUASCREEN Negative (Negative); EDINFLUBSCREEN Negative (Negative); EDSTREPNEGPOS1 Negative (Negative)
== END 2024-07-26 14:20 | disposition home or self-care (01) ==
PROVIDERS: Emergency Provider Registered Nurse
DX: J06.9 Acute upper respiratory infection, unspecified (principal); J02.9 Acute pharyngitis, unspecified; Z20.822 Contact with and (suspected) exposure to COVID-19
CPT/HCPCS: 87081; 87426; 87804; 87880; 99203; G0463